=== PATIENT | male | born 1980 | race African-American/Black ===

== ENCOUNTER 2021-12-04 16:13 | Emergency (ER) | payer OTHER ==
--- NOTE | 2021-12-04 16:38 | ED Physician Documentation ---
PD HPI LOWER EXT INJURY - Stated complaint Stated Complaint: LT ANKLE INJ - Chief complaint Chief Complaint: Trauma Ext - History obtained from History obtained from: Patient - Additional information Additional information: Otherwise healthy 41-year-old gentleman who is active duty in the [employer] inverted his Left ankle about 45 minutes ago with moderate anterior lateral Left anklepain. No other injuries. He is able to walk and bear weight. Review of Systems Constitutional: reports: Reviewed and negative Cardiac: reports: Reviewed and negative Respiratory: reports: Reviewed and negative PD PAST MEDICAL HISTORY - Allergies Allergies/Adverse Reactions: Allergies Allergy/AdvReac Type Severity Reaction Status Date / Time No Known Drug Allergies Allergy Verified 12/04/21 16:17 PD ED PE NORMAL - Vitals Vital signs reviewed: Yes - General General: Alert and oriented X 3, No acute distress - Extremities Extremities: Other (Significant swelling and mild tenderness over the lateral malleolus without proximal fibular or other ankle/foot tenderness.) - Neuro Neuro: Alert and oriented X 3, Normal speech Results - Vitals Vitals: Vital Signs - 24 hr 12/04/21 12/04/21 16:17 17:01 Temperature 36.5 C Heart Rate 90 81 Respiratory 16 17 Rate Blood Pressure 150/80 H 145/87 H O2 Saturation 96 97 Oxygen O2 Source Room air Departure - Departure Disposition: 01 Home, Self Care Clinical Impression: Left ankle sprain Qualifiers: Encounter type: initial encounter Involved ligament of ankle: anterior talofibular ligament Qualified Code(s): S93.492A - Sprain of other ligament of left ankle, initial encounter Condition: Good Record reviewed to determine appropriate education?: Yes Instructions: ED Sprain Ankle W X Ray, ED Boot Aircast Walker Comments: As discussed, I do not see any evidence of bony injury on your x-ray. I will call you if the radiologist sees an abnormality that I do not. You can wear the boot as needed for comfort, I suspect you will find it helpful for the next week or 2. Take ibuprofen as needed for pain per package instructions. Return for new or worsening symptoms. Rest elevate and ice the ankle as well. If not better in a week follow-up with your flight surgeon. Discharge Date/Time: 12/04/21 17:02
--- NOTE | 2021-12-04 16:54 | XRAY Report ---
PROCEDURE: Ankle 3 View LT INDICATIONS: L ankle injury TECHNIQUE: 3 views of the ankle were acquired. COMPARISON: None FINDINGS: Bones: No acute fractures or dislocations. Ankle mortise is normally aligned. No suspicious bony l esions. Small plantar calcaneal enthesophyte. Soft tissues: Very small anterior tibiotalar joint effusion. Achilles tendon appears normal. IMPRESSION: Moderate lateral malleolus soft tissue swelling without underlying fracture or dislocati on. Very small anterior tibiotalar joint effusion. There is small plantar calcaneal enthesophyte. If there is persistent clinical concern for a radiographically occult fracture, recommend immobiliza tion and repeat imaging in 10 to 14 days. Reviewed by: Endy Vaughan MD on 12/04/2021 4:52 PM PDT Approved by: Endy Vaughan MD on 12/04/2021 4:52 PM PDT Station ID: [id number]
[2021-12-04 17:02] VITALS: BP 145/87
== END 2021-12-04 17:02 | disposition home or self-care (01) ==
LOC: ED 16:14
DX: S93.492A Sprain of other ligament of left ankle, initial encounter (principal); X50.1XXA Overexertion from prolonged static or awkward postures, initial encounter
CPT/HCPCS: 99282; 99283

== ENCOUNTER 2023-01-14 07:23 | Outpatient (CLI) | payer OTHER ==
--- NOTE | 2023-01-14 16:04 | MRI Report ---
PROCEDURE: KNEE WO - LT INDICATIONS: KNEE PAIN TECHNIQUE: Noncontrast sagittal PD fast spin echo and T2 fast spin echo with fat saturation, sagittal 3-D gradie nt sequence with fat saturation; coronal T1 spin echo and PD fast spin echo with fat saturation, and axial PD fast spin echo with fat saturation through the knee. COMPARISON: None. FINDINGS: Image quality: Excellent. Menisci: The medial and lateral menisci demonstrate normal morphology and internal signal. The meni scal root ligaments appear intact. Cruciate ligaments: The anterior cruciate ligament is mildly thickened. The posterior cruciate ligam ent is intact. Medial structures: The medial collateral ligament appears intact. The posterior oblique ligament, s emimembranosus tendon insertions, and oblique popliteal ligament, and meniscocapsular junction appear intact. Visualized portions of the pes anserinus tendons appear normal. No abnormal bursal fluid. Lateral structures: The lateral collateral ligament, long and short heads of the biceps femoris tend on appear intact. The popliteus tendon appears normal; the popliteofibular ligament appears intact. Iliotibial band appears normal. Anterior structures: Tendinosis and low-grade intrasubstance partial thickness involving distal quadr iceps tendon at its superior patella insertion is seen. Patellar alignment is normal. No femoral tro chlear dysplasia or ventral trochlear prominence. No edema in the infrapatellar fat pad. Bones and cartilage: No bone marrow contusions or fractures. Mild tricompartmental osteoarthritis an d low-grade chondromalacia is seen most notably in medial portion of patellofemoral compartment. Joint space: There is small knee joint. There is a tiny Abraham's cyst. Normal appearing synovial pli are incidentally noted. IMPRESSION: 1. Suggestive of low-grade sprain involving anterior cruciate ligament. The ACL rupture. The PCL is i ntact. 2. No evidence of focal meniscal tear. 3. Distal quadriceps tendinosis at its superior patella insertion. 4. Mild tricompartmental osteoarthritis and chondromalacia most notably in medial aspect of patellofe moral compartment. No fracture or dislocation. Small joint effusion and a tiny Abraham's cyst, no gross loose bodies. Reviewed by: Avery Campbell MD on 01/14/2023 1:52 PM PDT Approved by: Avery Campbell MD on 01/14/2023 1:52 PM PDT Station ID: [id number]
--- NOTE | 2023-01-14 16:04 | MRI Report ---
PROCEDURE: KNEE WO - RT INDICATIONS: KNEE PAIN TECHNIQUE: Noncontrast sagittal PD fast spin echo and T2 fast spin echo with fat saturation, sagittal 3-D gradie nt sequence with fat saturation; coronal T1 spin echo and PD fast spin echo with fat saturation, and axial PD fast spin echo with fat saturation through the knee. COMPARISON: None. FINDINGS: Image quality: Excellent. Menisci: Subtle signal abnormality involving posterior horn of medial meniscus extending to inferior articulating surface is seen concerning for very subtle oblique tear in this area. The lateral menisc us is intact.. The meniscal root ligaments appear intact. Cruciate ligaments: The anterior cruciate ligament is thickened with intrasubstance T2 hyperintense signal. The posterior cruciate ligament is intact. Medial structures: The medial collateral ligament appears mildly thickened. The posterior oblique l igament, semimembranosus tendon insertions, and oblique popliteal ligament, and meniscocapsular junct ion appear intact. Visualized portions of the pes anserinus tendons appear normal. No abnormal burs al fluid. Lateral structures: The lateral collateral ligament, long and short heads of the biceps femoris tend on appear intact. The popliteus tendon appears normal; the popliteofibular ligament appears intact. Anterior structures: Mild distal quadriceps tendinosis is seen. The patella tendon is intact. Patella r alignment is normal. No femoral trochlear dysplasia or ventral trochlear prominence. No edema in the infrapatellar fat pad. Bones and cartilage: No bone marrow contusions or fractures. Mild tricompartment osteoarthritis and chondromalacia is seen most notably involving medial facet of patella cartilage. Joint space: There is small knee joint fluid. There is a tiny Abraham's cyst. Normal appearing synovi al plicae are incidentally noted. IMPRESSION: 1. Finding may represent very subtle oblique tear involving posterior horn of medial meniscus extendi ng to inferior articulating surface. No focal lateral meniscal tear. 2. Degenerative changes and low-grade intrasubstance partial thickness tear involving anterior crucia te ligament. No ACL rupture. The PCL is intact. 3. Low-grade MCL sprain. 4. Mild distal quadriceps tendinosis. 5. 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 6. Small joint effusion and a tiny Abraham's cyst. No gross loose bodies. Reviewed by: Avery Campbell MD on 01/14/2023 1:50 PM PDT Approved by: Avery Campbell MD on 01/14/2023 1:50 PM PDT Station ID: [id number]
== END 2023-01-14 07:24 | disposition home or self-care (01) ==
LOC: DI 07:23
PROVIDERS: ATTEND General Practice
DX: M17.0 Bilateral primary osteoarthritis of knee (principal); S83.411A Sprain of medial collateral ligament of right knee, initial encounter; S83.511A Sprain of anterior cruciate ligament of right knee, initial encounter; M25.461 Effusion, right knee; M71.21 Synovial cyst of popliteal space [Baker], right knee; M94.261 Chondromalacia, right knee; M94.262 Chondromalacia, left knee; M25.462 Effusion, left knee; M71.22 Synovial cyst of popliteal space [Baker], left knee